=== PATIENT | female | born 1995 | race Caucasian/White ===

== ENCOUNTER 2018-04-05 11:50 | Emergency (ER) | payer MEDICAID ==
[~2018-04-05] VITALS: Ht 162.6 cm; Wt 96.4 kg
[2018-04-05 11:57] VITALS: Ht 162.6 cm; Wt 96.4 kg
[2018-04-05] MEDS ORDERED: KLONOPIN1 MG PO (11:59)
[2018-04-05] MEDS ORDERED: CELEXA20 MG PO (11:59)
[2018-04-05] MEDS ORDERED: TORADOL10 MG PO (13:26)
[2018-04-05] MEDS ORDERED: OMEPRAZOLE40 MG PO (13:26)
[2018-04-05 13:37] VITALS: BP 132/76
== END 2018-04-05 13:38 | disposition home or self-care (01) ==
LOC: D.ER 11:50
DX: R10.12 Left upper quadrant pain (principal); F17.200 Nicotine dependence, unspecified, uncomplicated

== ENCOUNTER 2018-07-21 15:14 | Emergency (ER) | payer MEDICAID ==
[~2018-07-21 15:14] MED LIST: CELEXA20 MG PO; KLONOPIN1 MG PO; OMEPRAZOLE40 MG PO; TORADOL10 MG PO
[2018-07-21] MEDS ORDERED: BUTALB-APAP-CA1 EACH PO (18:21)
== END 2018-07-21 18:30 | disposition home or self-care (01) ==
LOC: D.ER 15:14
DX: G43.909 Migraine, unspecified, not intractable, without status migrainosus (principal)

== ENCOUNTER 2019-09-19 22:06 | Emergency (ER) | payer MEDICAID ==
[~2019-09-19] VITALS: Ht 162.6 cm; Wt 81.6 kg
[~2019-09-19 22:06] MED LIST changes: +BUTALB-APAP-CA1 EACH PO
[2019-09-19 22:10] VITALS: Ht 162.6 cm; Wt 81.6 kg
[2019-09-19 22:35] LABS: BASOPHILS 0.2 % (0-2); EOSINOPHILS 1.6 % (0-7); HEMATOCRIT 41.1 % (36.0-48.0); IMMATURE GRANULOCYTES 0.1 % (0-5); LYMPHOCYTES 40.7 % (15-50); MCH 31.3 pg (26.0-34.0); MCHC 34.1 g/dL (31.0-37.0); MCV 91.7 fL (80.0-100.0); MEAN PLATELET VOLUME 9.7 fL (7.4-10.4); MONOCYTES 8.3 % (2-11); NEUTROPHILS 49.1 % (40-80); PLATELET COUNT 272 10x3/uL (130-400); RBC 4.48 10x6/uL (4.00-5.40); WBC 8.6 10x3/uL (4.8-10.8)
[2019-09-19 22:44] LABS: CALC OSMOLALITY 273 mosm/kg (275-300); CALCIUM 8.8 mg/dL (8.5-10.1); CARBON DIOXIDE 30.8 mmol/L (21.0-32.0); CHLORIDE - SERUM 102 mmol/L (98-107); CREATININE - SERUM 0.9 mg/dL (0.6-1.3); GLUCOSE 106 mg/dL (74-106); POTASSIUM - SERUM 3.6 mmol/L (3.5-5.1); SODIUM 138 mmol/L (136-145); UREA NITROGEN 7 mg/dL (7-18); eGFR NON AFRICAN AMERICAN 80 mL/min (90-120)
[2019-09-19 22:49] LABS: HCG SERUM NEGATIVE (NEGATIVE)
[2019-09-19 22:50] LABS: ALBUMIN 4.3 g/dL (3.4-5.0); ALKALINE PHOSPHATASE 45 U/L (30-120); ALT (SGPT) 30 U/L (10-68); BILIRUBIN - TOTAL 0.52 mg/dL (0.2-1.3); MAGNESIUM - SERUM 1.9 mg/dL (1.8-2.4); PROTEIN - SERUM 7.7 g/dL (6.4-8.2)
--- NOTE | 2019-09-19 22:58 | NUR ---
DR AVERY NOTIFIED AND SITTER ORDERED, SITTER AT BEDSIDE. NOTIFIED CHARGE NURSE AND ATTENDING IN REGARDS TO ASSESSMENT FINDINGS. RESOURCES GIVEN TO PT AND SAFETY PLAN INITIATED.
[2019-09-19 23:08] LABS: BACTERIA FEW /hpf (NEGATIVE); BILIRUBIN NEGATIVE (NEGATIVE); EPITHELIAL CELLS 0-5 /hpf (0-5); GLUCOSE NEGATIVE (NEGATIVE); KETONE SMALL mg/dL (NEGATIVE); NITRITE NEGATIVE (NEGATIVE); RED CELLS - URINE RARE /hpf (0-5); SPECIFIC GRAVITY 1.015 (1.005-1.020); UROBILINOGEN NORMAL (NORMAL)
[2019-09-19 23:14] LABS: UDS - AMPHET NEGATIVE QUAL (NEGATIVE); UDS - BARB NEGATIVE QUAL (NEGATIVE); UDS - BENZO POSITIVE QUAL (NEGATIVE); UDS - COCAINE NEGATIVE QUAL (NEGATIVE); UDS - OPIATE NEGATIVE QUAL (NEGATIVE); UDS - PCP NEGATIVE QUAL (NEGATIVE); UDS - THC POSITIVE QUAL (NEGATIVE)
[2019-09-19] MEDS ORDERED: MACROBID100 MG PO (23:20)
[2019-09-20 04:17] VITALS: BP 123/85
== END 2019-09-20 04:18 ==
LOC: D.ER 22:06
PROVIDERS: Family Medicine
DX: R45.851 Suicidal ideations (principal); R45.1 Restlessness and agitation; F41.8 Other specified anxiety disorders; S71.111A Laceration without foreign body, right thigh, initial encounter; S11.91XA Laceration without foreign body of unspecified part of neck, initial encounter; Y28.9XXA Contact with unspecified sharp object, undetermined intent, initial encounter; Y93.9 Activity, unspecified; Y92.9 Unspecified place or not applicable